=== PATIENT | male | born 1950 | race Caucasian/White ===

== ENCOUNTER 2019-06-14 08:33 | Day surgery (SDC) | payer OTHER ==
[2019-06-12 12:03] LABS: Absolute Lymphocytes (CBC) 1.9 K/uL (0.7-4.9); Basophils % 1.4 % (0-1.3); Hematocrit 42.7 % (39.6-49.0); Lymphocytes % 32.1 % (15.3-44.8); MPV 9.2 fL (7.6-11.3); RBC Red Blood Cell Count 5.16 M/uL (4.33-5.43)
[2019-06-12 12:04] LABS: Protime INR 1.01
--- NOTE | 2019-06-12 12:37 | RAD REPORT ---
EXAM DESCRIPTION: RAD - Chest Pa And Lat (2 Views) - 06/12/2019 11:49 am CLINICAL HISTORY: preop, pending heart catheterization with COMPARISON: None TECHNIQUE: Frontal and lateral views of the chest were obtained. FINDINGS: The lungs are clear. Heart size is normal and central vasculature is within normal limit s. No pleural effusion or pneumothorax seen. No acute bony finding noted. No aortic abnormality. IMPRESSION: No acute cardiopulmonary process.
[~2019-06-14 08:33] MED LIST: ATROPINE SULF 1 MG/10 ML SYR IV ONE; FENTANYL CITR 100 MCG/2 ML ONE; HEPA 1000U/500MLS 1,000 UNIT/500 ML BAG IV ONE; LIDOCAINE 1% 20 ML MDV ONE; MIDAZOLAM HCL 2 MG/2 ML INJ ONE; NA CHLORIDE 0.9% 0 ML ONE; NA CHLORIDE 0.9% 500 ML ONE
[2019-06-14 08:46] VITALS: TEMP 97.4
--- NOTE | 2019-06-14 09:02 | OP ---
Date of Procedure: 06/14/2019 Surgeon: Jonathan Lyles MD Law Reporter: Williams Baxter. The plan is for bedrest for 2 hours. He will go home today and I will see him in the office in next 2 weeks. If he has more chest pain down the road, we can certainly consider stenting the circumflex lesion. The 90% posterolateral branch ostial would be very difficult to work with because of this lo cation and the fact that he has a codominant system. Procedure: Left heart catheterization with selective coronary arteriogram. Indication: Chest pain, coronary artery disease, and abnormal stress test. Indication For Procedure: Mr. Johnston is a 69-year-old, has a history of hypertension, dyslipidemia , cerebrovascular disease, has had an RCA stent in the past. Came in with atypical chest pain. Had positive stress test inferiorly, scheduled for [facility] today as an outpatient. Description Of Procedure: He was brought to [facility] today 06/14/2019, prepped and draped in the routine sterile fashion. Given Versed for IV sedation. A 6-Uzbek sheath introduced in the right c ommon femoral artery successfully. Angiography there was normal. Angio-Seal was used to close the c ase. Ngoc catheter left and right were used to select the left main and right main respectively. The RCA had some minor plaquing with patent stent distally. The LAD has some minor plaquing through out but without any focal stenosis. The circumflex had a 50% mid stenosis. There was a 90% ostial p osterolateral branch off the circumflex. The patient has a codominant system, very large arteries th roughout. Decision was to treat him medically for now. A 6-Uzbek sheath and catheters were used. There were no complications. Blood Loss: 5 cc. Total Conscious Sedation: 30 minutes. Postoperative Diagnosis: Coronary artery disease, severe. Plan: Medical therapy. I will continue his present medical regimen. I will add Plavix. The case w as discussed with the patient. NB/MODL Voice ID: [id number] Report ID: [id number]
[2019-06-14 10:10] VITALS: O2SAT 98
[2019-06-14 10:21] VITALS: BP 133/69
== END 2019-06-14 10:28 | disposition home or self-care (01) ==
LOC: CCL 08:33
DX: I25.10 Atherosclerotic heart disease of native coronary artery without angina pectoris (principal); I65.23 Occlusion and stenosis of bilateral carotid arteries; I10 Essential (primary) hypertension; E78.5 Hyperlipidemia, unspecified; Z95.5 Presence of coronary angioplasty implant and graft; Z79.82 Long term (current) use of aspirin; Z82.49 Family history of ischemic heart disease and other diseases of the circulatory system
CPT/HCPCS: 85025; 80048; 36415; 85610; 85730; 71046; 93454; C1893; C1760; J2250; J3010; J7040; J0583